=== PATIENT | male | born 1980 | race Caucasian/White ===

== ENCOUNTER 2016-11-04 12:14 | Outpatient (CLI) | payer OTHER | END 2016-11-04 12:15 | disposition home or self-care (01) | DX: M51.26 Other intervertebral disc displacement, lumbar region (principal); M51.27 Other intervertebral disc displacement, lumbosacral region; M47.897 Other spondylosis, lumbosacral region ==

== ENCOUNTER 2018-02-24 13:57 | Outpatient (CLI) | payer OTHER | END 2018-02-24 13:58 | disposition home or self-care (01) | LOC: SC 13:57 | PROVIDERS: ATTEND Internal Medicine Pulmonary Disease | DX: G47.10 Hypersomnia, unspecified (principal); R51 Headache; R06.83 Snoring; G47.8 Other sleep disorders | CPT/HCPCS: 99203; 99212 ==

== ENCOUNTER 2018-04-10 19:36 | Outpatient (CLI) | payer OTHER | END 2018-04-10 19:37 | disposition home or self-care (01) | LOC: SC 19:36 | PROVIDERS: ATTEND Internal Medicine Pulmonary Disease | DX: G47.61 Periodic limb movement disorder (principal); R06.83 Snoring | CPT/HCPCS: 95810 ==

== ENCOUNTER 2018-04-28 14:04 | Outpatient (CLI) | payer OTHER | END 2018-04-28 14:05 | disposition home or self-care (01) | LOC: SC 14:04 | PROVIDERS: ATTEND Internal Medicine Pulmonary Disease | DX: G47.61 Periodic limb movement disorder (principal); G25.81 Restless legs syndrome | CPT/HCPCS: 99212; 99213 ==

== ENCOUNTER 2018-08-04 11:55 | Emergency (ER) | payer OTHER ==
[2018-08-04 12:25] VITALS: BP 163/97
[2018-08-04] MEDS ORDERED: DEXAMETHASONE 10 MG/ML VIAL PO STA (13:48)
[2018-08-04] MEDS ORDERED: IPRATROPIUM/ALBUTEROL 3 ML NEB INH STA (13:48)
--- NOTE | 2018-08-04 13:51 | ED Physician Documentation ---
PD HPI URI - Stated complaint Stated Complaint: BODY ACHES/NAUSEA - Chief complaint Chief Complaint: Fever - History obtained from History obtained from: Patient, Family - History of Present Illness Timing - onset: How many days ago (3) Timing duration: Days (3) Timing details: Gradual onset, Still present Associated symptoms: Fever, Chills, Sweats, Nasal congestion, Rhinorrhea, Dry cough, Chest pain, Dyspnea Contributing factors: Sick contact Improves by: Rest, Medication, MDI/nebulizer Worsened by: Activity Similar symptoms before: Diagnosis (bronchitis and influenza) Recently seen: Not recently seen - Additional information Additional information: 37-year-old male with a history of bronchitis has developed cough and congestion shortness of breath and is not been getting adequate relief with use of his inhalers. He developed a low-grade fever and has body aches and pains. He has had influenza previously. He has a friend and his were both ill as well. Review of Systems Constitutional: reports: Fever, Chills, Myalgias, Fatigue Eyes: denies: Decreased vision Ears: denies: Ear pain Nose: reports: Rhinorrhea / runny nose, Congestion Throat: denies: Sore throat Cardiac: reports: Chest pain / pressure. denies: Palpitations Respiratory: reports: Dyspnea, Cough, Wheezing GI: denies: Abdominal Pain, Nausea, Vomiting : denies: Dysuria, Frequency PD PAST MEDICAL HISTORY - Past Medical History Past Medical History: Yes Musculoskeletal: Chronic back pain - Past Surgical History Past Surgical History: Yes - Present Medications Home Medications: Ambulatory Orders Medication Instructions Recorded Confirmed Albuterol Sulf [Ventolin Hfa 1 - 2 puffs INH Q4HR PRN #1 inhaler 08/04/18 Inhaler] Azithromycin [Zithromax] 250 mg PO DAILY #6 tablet 08/04/18 D-Methorphan/PE/Acetaminophen 08/04/18 [Theraflu Ms Severe Cold Pckt] Phenylephrine/Dm/Acetaminop/GG 08/04/18 [Severe Daytime Cold-Flu Liq] predniSONE [Deltasone] 10 mg PO ONCE #26 tablet 08/04/18 - Allergies Allergies/Adverse Reactions: Allergies Allergy/AdvReac Type Severity Reaction Status Date / Time No Known Drug Allergies Allergy Verified 04/23/13 16:11 - Social History Does the pt smoke?: No Smoking Status: Never smoker Does the pt drink ETOH?: Yes Does the pt have substance abuse?: No - Immunizations Immunizations are current?: Yes - POLST Patient has POLST: No PD ED PE NORMAL - Vitals Vital signs reviewed: Yes (hypertensive ) - General General: Alert and oriented X 3, No acute distress, Well developed/nourished - HEENT HEENT: Atraumatic, PERRL, EOMI, Other (mild inflamation to both TM's worse on the left ) - Neck Neck: Supple, no meningeal sign, No bony TTP - Cardiac Cardiac: RRR, No murmur - Respiratory Respiratory: No respiratory distress, Other (scattered wheezes and rhonchi ) - Abdomen Abdomen: Soft, Non tender - Back Back: No CVA TTP, No spinal TTP - Derm Derm: Normal color, Warm and dry, No rash - Extremities Extremities: No deformity, No edema - Neuro Neuro: Alert and oriented X 3, 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, No motor deficit, No sensory deficit, Normal speech Eye Opening: Spontaneous Motor: Obeys Commands Verbal: Oriented GCS Score: 15 - Psych Psych: Normal mood, Normal affect Results - Vitals Vitals: Vital Signs - 24 hr 08/04/18 08/04/18 12:22 14:03 Temperature 36.1 C L Heart Rate 87 90 Respiratory 16 18 Rate Blood Pressure 163/97 H O2 Saturation 98 Oxygen O2 Source Room air - Labs Labs: Laboratory Tests 08/04/18 12:27 Influenza A (Rapid) Negative Influenza B (Rapid) Negative PD MEDICAL DECISION MAKING - ED course Complexity details: reviewed results, re-evaluated patient, considered differential, d/w patient, d/w family ED course: 37-year-old male with a cough and congestion has a history of reactive airway disease and his inhalers are not working adequately for him. He is administered a DuoNeb treatment and dexamethasone he does have mild otitis on exam and chest x-ray is obtained as well. Departure - Departure Disposition: 01 Home, Self Care Clinical Impression: Bronchitis Otitis media Qualifiers: Otitis media type: suppurative Chronicity: acute Laterality: bilateral Recurrence: not specified as recurrent Spontaneous tympanic membrane rupture: without spontaneous rupture Qualified Code(s): H66.003 - Acute suppurative otitis media without spontaneous rupture of ear drum, bilateral Instructions: ED Bronchitis Asthmatic, ED Otitis Media Acute Adult Follow-Up: Your, doctor [Other] Prescriptions: Albuterol Sulf [Ventolin Hfa Inhaler] 1 - 2 puffs INH Q4HR PRN #1 inhaler PRN Reason: Shortness Of Air/Wheezing Azithromycin [Zithromax] 250 mg PO DAILY #6 tablet predniSONE [Deltasone] 10 mg PO ONCE #26 tablet Forms: Activity restrictions
--- NOTE | 2018-08-04 14:58 | XRAY Report ---
Reason: cough, rhonchi bilat Procedure Date: 08/04/2018 Accession Number: [id number] / [id number] Procedure: XR - Chest 2 View X-Ray CPT Code: 24570 FULL RESULT: EXAM: CHEST RADIOGRAPHY EXAM DATE: 08/04/2018 02:33 PM. CLINICAL HISTORY: Cough, rhonchi bilaterally. COMPARISON: Chest 2 view PA/LAT 07/04/2014 3:28 PM. TECHNIQUE: 2 views. FINDINGS: Lungs/Pleura: No focal opacities evident. No pleural effusion. No pneumothorax. Normal volumes. Mediastinum: Heart and mediastinal contours are unremarkable. Other: None. IMPRESSION: Normal 2-view chest radiography. RADIA
== END 2018-08-04 14:53 | disposition home or self-care (01) ==
LOC: ED 11:55
DX: J40 Bronchitis, not specified as acute or chronic (principal); H66.003 Acute suppurative otitis media without spontaneous rupture of ear drum, bilateral
CPT/HCPCS: 71046; 87275; 87276; 94640; 99283

== ENCOUNTER 2019-03-29 16:45 | Emergency (ER) | payer OTHER ==
--- NOTE | 2019-03-29 18:04 | ED Physician Documentation ---
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 It has been for about a week and got significant enough where he could not use it regularly the last couple of days. He feels a creaking feeling in his top of his wrist with motion. He denies any numbness or weakness in the fingers.). No: Fall Where injury occurred: Work Timing - details: Gradual onset, Still present Worsened by: Moving, Palpating Associated symptoms: No: Weakness, Numbness, Swelling Similar symptoms before: Has not had sx before Review of Systems Constitutional: denies: Fever Skin: denies: Rash, Abrasion (s), Laceration (s) Neurologic: denies: Focal weakness, Numbness PD PAST MEDICAL HISTORY - Past Medical History Past Medical History: No Musculoskeletal: Chronic back pain - Past Surgical History Past Surgical History: Yes - Present Medications Home Medications: Ambulatory Orders Medication Instructions Recorded Confirmed D-Methorphan/PE/Acetaminophen 08/04/18 [Theraflu Ms Severe Cold Pckt] Phenylephrine/Dm/Acetaminop/GG 08/04/18 [Severe Daytime Cold-Flu Liq] RX: Albuterol Sulf [Ventolin Hfa 1 - 2 puffs INH Q4HR PRN #1 inhaler 08/04/18 Inhaler] RX: Azithromycin [Zithromax] 250 mg PO DAILY #6 tablet 08/04/18 RX: predniSONE [Deltasone] 10 mg PO ONCE #26 tablet 08/04/18 RX: Naproxen 500 mg PO BID #20 tablet 03/29/19 RX: Tramadol HCl 50 mg PO Q6H PRN #15 tablet 03/29/19 dexAMETHasone [Decadron] 4 mg PO DAILY #5 tablet 03/29/19 - Allergies Allergies/Adverse Reactions: Allergies Allergy/AdvReac Type Severity Reaction Status Date / Time No Known Drug Allergies Allergy Verified 03/29/19 16:53 - Social History Does the pt smoke?: No Smoking Status: Never smoker Does the pt drink ETOH?: Yes Does the pt have substance abuse?: No - Immunizations Immunizations are current?: Yes - POLST Patient has POLST: No PD ED PE NORMAL - Vitals Vital signs reviewed: Yes - General General: Alert and oriented X 3, No acute distress, Well developed/nourished - Derm Derm: Normal color, Warm and dry - Extremities Extremities: Other (The right wrist is tender along the dorsal aspect with some crepitant feeling in the distal forearm dorsally with flexion extension at the wrist. This is consistent with a feeling of tendinitis. There is some focal tenderness at the distal radius as well. No edema in the fingers. Good color and capillary refill as well as sensation in the fingers.) - Neuro Neuro: Alert and oriented X 3, No motor deficit, No sensory deficit, Normal speech Results - Vitals Vitals: Vital Signs - 24 hr 03/29/19 03/29/19 16:53 18:56 Temperature 37 C 36.8 C Heart Rate 67 88 Respiratory 17 18 Rate Blood Pressure 164/97 H 152/86 H O2 Saturation 98 99 Oxygen O2 Source Room air - Rads (name of study) right wrist Radiology: Prelim report reviewed, EMP read contemporaneously (no fractures nor acute bony process), See rad report PD MEDICAL DECISION MAKING - ED course Complexity details: reviewed results, considered differential (Consistent with acute repetitive use tendinitis.), d/w patient Departure - Departure Disposition: 01 Home, Self Care Clinical Impression: Right wrist tendonitis Condition: Stable Record reviewed to determine appropriate education?: Yes Follow-Up: [facility] [Provider Group] Prescriptions: dexAMETHasone [Decadron] 4 mg PO DAILY #5 tablet RX: Naproxen 500 mg PO BID #20 tablet RX: Tramadol HCl 50 mg PO Q6H PRN #15 tablet PRN Reason: Pain Comments: This seems like wrist tendinitis which is inflammation of the tendon sheath. It comes from repetitive and overuse of the muscles. He can be treated with less motion and use of the wrist with the wrist splint as well as anti- inflammatories. Use naproxen and Decadron as directed. Add Tylenol or tramadol as needed for pain. I would anticipate being able to do regular activity with the wrist splint concurrent with use of the anti-inflammatories. If it still hurting a lot, you may need to decrease the amount of use and activity of it for several days to week until its better. Follow-up with your primary care or orthopedics if still not improved over the next week or so. Sometimes it can take 2 to 3 weeks to fully resolve back to normal but it should be considerably improved over a week's time. Discharge Date/Time: 03/29/19 18:57
[2019-03-29] MEDS ORDERED: CHERRY SYRUP 10 ML UDC PO ONE (18:38)
[2019-03-29] MEDS ORDERED: NAPROXEN 250 MG TABLET PO STA (18:38)
[2019-03-29] MEDS ORDERED: DEXAMETHASONE 10 MG/ML VIAL PO STA (18:38)
[2019-03-29 18:57] VITALS: BP 152/86
--- NOTE | 2019-03-29 19:08 | XRAY Report ---
Reason: pain after splitting wood Procedure Date: 03/29/2019 Accession Number: [id number] / [id number] Procedure: XR - Wrist 3 View RT CPT Code: FULL RESULT: EXAM: RIGHT WRIST RADIOGRAPHY EXAM DATE: 03/29/2019 06:06 PM. CLINICAL HISTORY: Pain after splitting wood. COMPARISON: None. TECHNIQUE: 3 views. FINDINGS: Bones: Normal. No fractures or bone lesions. Joints: Normal. No subluxations. Soft Tissues: Unremarkable. IMPRESSION: Normal wrist radiography. RADIA
== END 2019-03-29 18:57 | disposition home or self-care (01) ==
LOC: ED 16:45
DX: M77.8 Other enthesopathies, not elsewhere classified (principal); M25.531 Pain in right wrist; X50.3XXA Overexertion from repetitive movements, initial encounter; Y93.89 Activity, other specified
CPT/HCPCS: 73110; 99283; A9270

== ENCOUNTER 2019-09-10 12:37 | Outpatient (CLI) | payer OTHER ==
[2019-09-10] MEDS ORDERED: IOTHALAMATE MEGLUMINE 50 ML VIAL ONE (12:52)
[2019-09-10] MEDS ORDERED: BUFFERED LIDOCAINE 10 ML SYRINGE ONE (12:52)
[2019-09-10] MEDS ORDERED: GADOBUTROL 7.5 MMOL/7.5 ML VIAL ONE (12:53)
[2019-09-10] MEDS ORDERED: IOTHALAMATE MEGLUMINE 50 ML VIAL IVP ONE (14:08)
[2019-09-10] MEDS ORDERED: GADOBUTROL 7.5 MMOL/7.5 ML VIAL IVP ONE (14:08)
[2019-09-10] MEDS ORDERED: BUFFERED LIDOCAINE 10 ML SYRINGE IU ONE (14:08)
[2019-09-10] MEDS ORDERED: TRIAMCINOLONE 40 MG/ML VIAL IM ONE (14:08)
--- NOTE | 2019-09-10 17:02 | XRAY Report ---
Reason: EVAL LABRAL TEAR Procedure Date: 09/10/2019 Accession Number: [id number] / [id number] Procedure: FL - Arthrogram Needle Placement CPT Code: Final Report FULL RESULT: EXAM: LEFT HIP ARTHROGRAPHIC INJECTION WITH FLUOROSCOPIC GUIDANCE EXAM DATE: 09/10/2019 02:01 PM. CLINICAL HISTORY: EVAL LABRAL TEAR. COMPARISON: None. TECHNIQUE: The risks, benefits, and alternatives of the procedure were discussed with the patient. All questions were answered. Written and verbal consent were obtained. The hip joint was marked under fluoroscopy and prepped and draped in a sterile manner. Local anesthesia was performed with 1% lidocaine. A 22-gauge needle was then inserted into the hip joint. 10 mL of a solution containing 25% 1% lidocaine, 25% iodinated contrast, and a 1:200 dilution of gadolinium contrast in sterile saline with 1 mL 40 mg triamcinolone was then injected. The needle was removed without immediate complication. Other: None. Fluoroscopy Time: 0.01 seconds. Number of Images: 6. FINDINGS: Bones and Joints: No fracture or subluxation. Injection: Fluoroscopic images demonstrate needle placement and contrast in the hip joint. Triamcinolone was injected as per the requesting physician's order. IMPRESSION: Successful fluoroscopically guided arthrographic injection of the hip with steroid injection. RADIA
--- NOTE | 2019-09-14 13:35 | MRI Report ---
Reason: EVAL LABRAL TEAR Procedure Date: 09/10/2019 Accession Number: [id number] / [id number] Procedure: MRI - Arthrogram Hip LT CPT Code: Final Report FULL RESULT: EXAM: LEFT HIP MRI ARTHROGRAM WITH CONTRAST EXAM DATE: 09/10/2019 02:53 PM. CLINICAL HISTORY: Chronic left hip pain. No labral tear from previous MRI. COMPARISON: ARTHROGRAM NEEDLE PLACEMENT 09/10/2019 1:51 PM. TECHNIQUE: Multiplanar, multisequence T1-weighted and fluid-sensitive, small luquj-rk-zdwn sequences of the hip and large oofsf-jl-uujc sequences of the pelvis after an arthrographic injection of dilute gadolinium, dictated under a separate exam. Other: None. FINDINGS: Bones: Subcortical marrow edema at the superior aspect of the left acetabulum. No acute fracture or bone lesions. Left Hip: No acetabular retroversion. There is a tear at the superior and anterosuperior aspects of the left acetabular labrum. No loose bodies. 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 The ligamentum teres is intact. Other Joints: Degenerative disk changes at L5-S1 of the lumbar spine. The sacroiliac joints and pubic symphysis are unremarkable. The right hip is unremarkable. Musculature: No edema or fatty atrophy. The gluteus medius and minimus tendons are normal. The visualized hamstring tendons are normal. The ischiofemoral space is normal. Pelvic Cavity: Incidentally, there is an approximately 9 x 6 mm slightly hypointense focus within, or adjacent to the posterior right paramedian aspect of the urinary bladder ( axial image 20 of series 501 and coronal image 26 of series 401). No free fluid or lymphadenopathy. Other: The visualized sciatic nerves are unremarkable. No bursitis. The subcutaneous tissues are unremarkable. IMPRESSION: 1. . Tear at the superior and anterosuperior aspects of the left acetabular labrum. 2. 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 3. Degenerative disk changes at L5-S1 of the lumbar spine. 4. Incidental finding of a 9 x 6 mm slightly hypointense focus within, or adjacent to the posterior right paramedian aspect of the urinary bladder. Differential may include a bladder stone, intramural or intraluminal bladder mass, or extrinsic mass adjacent to the bladder wall. Consider further evaluation with a follow-up CT pelvis without and with intravenous contrast. RADIA
== END 2019-09-10 12:38 | disposition home or self-care (01) ==
LOC: DI 12:37
PROVIDERS: ATTEND Physical Medicine & Rehabilitation
DX: S73.102A Unspecified sprain of left hip, initial encounter (principal); M94.252 Chondromalacia, left hip; M51.37 Other intervertebral disc degeneration, lumbosacral region
CPT/HCPCS: 27093; 73722; 77002; A9585; Q9961

== ENCOUNTER 2021-08-13 11:31 | Emergency (ER) | payer OTHER ==
[2021-08-13] MEDS ORDERED: KETOROLAC 60 MG/2 ML VIAL IM STA (12:38)
[2021-08-13] MEDS ORDERED: DEXAMETHASONE 10 MG/ML VIAL PO STA (12:38)
[2021-08-13] MEDS ORDERED: methocarbamoL 500 MG TABLET PO STA (12:38)
[2021-08-13] MEDS ORDERED: HYDROmorphone 1 MG/ML CARPUJECT IM STA (12:38)
--- NOTE | 2021-08-13 12:53 | ED Physician Documentation ---
History of Present Illness - Stated complaint Stated Complaint: BACK PX - Chief complaint Chief Complaint: Back Pain - History obtained from History obtained from: Patient - Additonal information Additional information: Patient is a 40-year-old male who states that he was taking ditches at work when he felt a pop in his back 3 days ago. He felt pain radiating to his bilateral lower legs. He states that he has had chronic back issues. Has multiple bulging disks. Has been taking Aleve without relief. No loss of bowel or bladder control. No fevers. No chills. No IV drug use. Review of Systems Ten Systems: 10 systems reviewed and negative Constitutional: denies: Fever, Chills Ears: denies: Ear pain Nose: denies: Rhinorrhea / runny nose, Congestion Cardiac: denies: Palpitations Respiratory: denies: Cough GI: denies: Vomiting, Diarrhea Skin: denies: Rash Musculoskeletal: denies: Neck pain, Back pain Neurologic: denies: Headache PD PAST MEDICAL HISTORY - Past Medical History Cardiovascular: Hypertension Respiratory: Asthma Neuro: CVA Endocrine/Autoimmune: None GI: None : None HEENT: None Psych: None Musculoskeletal: Chronic back pain Derm: None - Past Surgical History Past Surgical History: Yes Ortho: Other - Present Medications Home Medications: Ambulatory Orders Medication Instructions Recorded Confirmed Naproxen 500 mg PO BID #20 tablet 03/29/19 08/13/21 Albuterol Sulfate [Proair Hfa 1 - 2 puffs INH Q4H PRN 08/13/21 08/13/21 Inhaler] Cetirizine [ZyrTEC] 10 mg PO DAILY 08/13/21 08/13/21 Meloxicam [Mobic] 15 mg PO DAILY PRN #20 tablet 08/13/21 Montelukast [Singulair] 10 mg PO QPM 08/13/21 08/13/21 Oxycodone HCl/Acetaminophen 1 - 2 each PO Q6H PRN #14 tablet 08/13/21 [Percocet 5-325 mg Tablet] methocarbamoL [Robaxin] 500 mg PO Q6H PRN #20 tablet 08/13/21 methylPREDNISolone [Medrol] 4 mg PO DAILY #1 tab 08/13/21 - Allergies Allergies/Adverse Reactions: Allergies Allergy/AdvReac Type Severity Reaction Status Date / Time No Known Drug Allergies Allergy Verified 08/13/21 11:54 - Social History Does the pt smoke?: No Smoking Status: Former smoker Does the pt drink ETOH?: Yes Does the pt have substance abuse?: No - Immunizations Immunizations are current?: No Immunizations: Other immun not current - POLST Patient has POLST: No PD ED PE NORMAL - Vitals Vital signs reviewed: Yes - General General: Alert and oriented X 3, No acute distress - HEENT HEENT: Moist mucous membranes - Neck Neck: Supple, no meningeal sign - Cardiac Cardiac: RRR, Strong equal pulses - Respiratory Respiratory: No respiratory distress, Clear bilaterally - Abdomen Abdomen: Soft, Non tender, Non distended - Back Back: No spinal TTP (No midline tenderness to palpation or percussion. No step- off or deformity. Paraspinal spasm bilateral lower lumbar.) - Derm Derm: Warm and dry - Extremities Extremities: No edema, No calf tenderness / cord - Neuro Neuro: Alert and oriented X 3, No motor deficit, No sensory deficit, Other (Normal bilateral lower extremity patellar and ankle jerk reflexes. Normal great toe extension bilaterally. no saddle anesthesia) - Psych Psych: Normal mood, Normal affect Results - Vitals Vitals: Vital Signs - 24 hr 08/13/21 08/13/21 11:55 13:10 Temperature 36.3 C L 36.9 C Heart Rate 71 61 Respiratory 20 20 Rate Blood Pressure 160/120 H 143/101 H O2 Saturation 98 97 Oxygen O2 Source Room air PD MEDICAL DECISION MAKING - ED course Complexity details: re-evaluated patient, considered differential (No cauda equina, no spinal epidural abscess, no fracture, no aortic dissection or evidence of aneursym rupture), d/w patient, d/w family ED course: Patient with chronic low back pain and known back issues. This appears to be an acute exacerbation of his chronic problems. No evidence of cauda equina or epidural abscess. Patient counseled regarding signs and symptoms for which I believe and urgent re-evaluation would be necessary. Patient with good understanding of and agreement to plan and is comfortable going home at this time This document was made in part using voice recognition software. While efforts are made to proofread this document, sound alike and grammatical errors may occur. I am prescribing a short course of short-acting opioid pain medication for this patient. 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 I have discussed that the opioids are for short term therapy only, and will not be refilled from the ED. Departure - Departure Disposition: 01 Home, Self Care Clinical Impression: Sciatica Qualifiers: Laterality: bilateral Qualified Code(s): M54.31 - Sciatica, right side Condition: Good Instructions: ED Sciatica Follow-Up: MIA GARSIA DO [Primary Care Provider] - Within 1 week Prescriptions: methylPREDNISolone [Medrol] 4 mg PO DAILY #1 tab Meloxicam [Mobic] 15 mg PO DAILY PRN #20 tablet PRN Reason: pain Oxycodone HCl/Acetaminophen [Percocet 5-325 mg Tablet] 1 - 2 each PO Q6H PRN #14 tablet PRN Reason: pain methocarbamoL [Robaxin] 500 mg PO Q6H PRN #20 tablet PRN Reason: muscle spasm Comments: Please follow-up with your doctor for further care. Return if you worsen. This should improve over the next several days. Your prescription was sent to [facility] in [place]. I am prescribing a short course of narcotic pain medication for you. These are potentially dangerous and addictive medications that should be used carefully. These medications may constipate you. Take an pewe-rlv-iezdbxd stool softener (docusate) twice daily with plenty of water while taking these medications. If you go 24 hours without a bowel movement, take vddt-lnx-mejhihy miralax, per package instructions. Do not drink or drive while taking these medications. If you received narcotic or sedating medications while in the emergency department, do not drive for 24 hours. Store this medication in a safe, secure place and out of reach of children. It is a violation of federal law to give or sell this medication to another person or to use in a manner other than prescribed. The ED will not refill narcotic prescriptions, including prescriptions lost or stolen. To dispose of unwanted medications: 1. [facility] at [address] in [place] has a medication drop box. They accept prescription medications (in pill form) Friday through Friday 9:00 a.m. to 5:00 p.m. 2. [facility] [employer] [facility] accepts prescription medications (in pill form only) for disposal year round. Call for more information. 3. Contact the [facility] for the next [facility] sponsored prescription drug collection event. , [phone], or [phone]; Discharge Date/Time: 08/13/21 13:25
[2021-08-13 13:11] VITALS: BP 143/101
== END 2021-08-13 13:25 | disposition home or self-care (01) ==
LOC: ED 11:31
DX: M54.31 Sciatica, right side (principal); G89.29 Other chronic pain; I10 Essential (primary) hypertension; Z87.891 Personal history of nicotine dependence
CPT/HCPCS: 96372; 99284; A9270; J1170